=== PATIENT | male | born 1940 | race Hispanic/Latino ===

== ENCOUNTER 2019-01-21 11:23 | Day surgery (SDC) | payer MEDICARE ==
[~2019-01-21 11:23] MED LIST: APRACLONIDINE 1% OPHTH SOLN DROPERETTE ONE; PHENYLEPHRINE 10% OPHTH SOLN 5 ML ONE; TROPICAMIDE 1% OPHTH SOLN 3 ML ONE
[2019-01-21] MEDS ORDERED: TROPICAMIDE 1% OPHTH SOLN 3 ML OS ONE (11:44)
[2019-01-21] MEDS ORDERED: APRACLONIDINE 1% OPHTH SOLN DROPERETTE OS ONE ×2 (11:44→12:25)
[2019-01-21] MEDS ORDERED: PHENYLEPHRINE 10% OPHTH SOLN 5 ML OS ONE (11:44)
[2019-01-21 11:57] VITALS: BP 133/68
== END 2019-01-21 12:26 | disposition home or self-care (01) ==
LOC: OR 11:23
PROVIDERS: ATTEND Specialist
DX: H26.492 Other secondary cataract, left eye (principal); E78.00 Pure hypercholesterolemia, unspecified; I48.91 Unspecified atrial fibrillation; I10 Essential (primary) hypertension; M19.90 Unspecified osteoarthritis, unspecified site; Z98.41 Cataract extraction status, right eye; Z98.42 Cataract extraction status, left eye; Z98.890 Other specified postprocedural states; Z72.89 Other problems related to lifestyle; Z96.653 Presence of artificial knee joint, bilateral; Z85.89 Personal history of malignant neoplasm of other organs and systems; Z86.2 Personal history of diseases of the blood and blood-forming organs and certain disorders involving the immune mechanism